=== PATIENT | male | born 1950 | race Asian ===

== ENCOUNTER 2024-06-22 11:26 | Emergency (ER) | payer SELFPAY ==
[~2024-06-22] VITALS: Ht 162.6 cm; Wt 75.0 kg
[2024-06-22 11:58] VITALS: BP 143/70; PULSE 77; RESP 16; TEMP 98.3; O2SAT 100
[2024-06-22] MEDS ORDERED: MELA3CAP2 PO (13:21)
== END 2024-06-22 13:51 | disposition home or self-care (01) ==
LOC: EMS 11:41
DX: G47.00 Insomnia, unspecified (principal); R25.1 Tremor, unspecified; I10 Essential (primary) hypertension; F03.918 Unspecified dementia, unspecified severity, with other behavioral disturbance
CPT/HCPCS: 71045; 93005; 99283